=== PATIENT | male | born 1960 ===

== ENCOUNTER 2017-10-01 14:06 | Emergency (ER) | payer OTHER, SELFPAY ==
[2017-10-01 14:12] VITALS: BP 172/89; PULSE 74; RESP 16; TEMP 36.8; O2SAT 98
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
[2017-10-01 15:17] VITALS: BP 121/68; PULSE 67; RESP 16; TEMP 36.6; O2SAT 99
== END 2017-10-01 15:03 | disposition home or self-care (01) ==
PROVIDERS: Emergency Provider Emergency Medicine
DX: S51.012A Laceration without foreign body of left elbow, initial encounter (principal); S50.312A Abrasion of left elbow, initial encounter; V18.0XXA Pedal cycle driver injured in noncollision transport accident in nontraffic accident, initial encounter; Y93.55 Activity, bike riding
CPT/HCPCS: 12001